=== PATIENT | female | born 1990 | race Caucasian/White ===

== ENCOUNTER 2017-04-11 01:18 | Emergency (ER) | payer OTHER, SELFPAY ==
[2017-04-11] MEDS ORDERED: Ondansetron HCl/PF 4 MG/2 ML Vial ONE (01:42)
[2017-04-11 02:37] LABS: ALT (SGPT) 126 U/L (8-55); AST (SGOT) 140 U/L (5-34); Acetaminophen Less than 6.0 mcg/mL (10.0-30.0); Albumin 3.9 g/dL (3.5-5.0); Alcohol Less than 10 mg/dL (Less than 10); Alkaline Phosphatase 42 U/L (40-150); Anion Gap 18 mmol/L (10-20); BUN (Urea Nitrogen) 18 mg/dL (7.0-18.7); Bilirubin, Total 0.8 mg/dL (0.2-1.2); Calc. Creatinine Clearance 0 mL/min (70-130); Calcium 8.6 mg/dL (7.8-10.44); Carbon Dioxide 22 mmol/L (22-29); Chloride 106 mmol/L (98-107); Estimated GFR-MDRD 71; Globulin 2.8 g/dL (2.4-3.5); Glucose 169 mg/dL (70-105); Potassium 4.5 mmol/L (3.5-5.1); Protein, Total 6.7 g/dL (6.0-8.3); Salicylate Less than 8.0 mg/dL (15.0-30.0); Sodium 141 mmol/L (136-145)
[2017-04-11 02:45] LABS: Band 2 % (5-11); Eosinophils 1 % (0-10); Hemoglobin 12.3 g/dL (12.0-16.0); Lymphocytes 5 % (21-51); MDiff Complete? YES; Mean Corpuscular HGB CONC 34.2 g/dL (32.0-36.0); Mean Corpuscular Hemoglobin 29.6 pg (27.0-31.0); Mean Corpuscular Volume 86.7 fl (81.0-99.0); Mean Platelet Volume 7.4 fL (7.4-10.4); Monocytes 6 % (0-10); Neutrophil 86 % (42-75); PLT Morphology Comment Appears Adequate; Platelet Count 322 thou/uL (130-400); RBC Distribution Width 12.1 % (11.5-14.5); RBC Morphology Normal; Red Blood Cell (RBC) Count 4.15 mill/uL (4.20-5.40); White Blood Cell (WBC) Count 26.1 thou/uL (4.8-10.8)
--- NOTE | 2017-04-11 07:12 | RAD ---
PORTABLE CHEST: Date: 04/11/17 No prior films are available for comparison. FINDINGS: The heart is normal in size. There is a very slight prominence of the vasculature. I cannot exclude v rosa m minor congestion or edema, but there are no focal pulmonary infiltrates. No effusions are seen. T he trachea is midline. IMPRESSION: Slight overall haziness and vascular prominence as noted above. POS: HOME
== END 2017-04-11 02:59 | disposition home or self-care (01) ==
LOC: BURERS 01:18
DX: T40.4X1A Poisoning by other synthetic narcotics, accidental (unintentional), initial encounter (principal); F17.210 Nicotine dependence, cigarettes, uncomplicated
CPT/HCPCS: 36415; 71045; 80053; 80307; 85025; 96361; 96374; J2405

== ENCOUNTER 2018-02-13 12:41 | Emergency (ER) | payer SELFPAY ==
[2018-02-13] MEDS ORDERED: cloNIDine 0.1 MG TAB ONE (13:23)
[2018-02-13] MEDS ORDERED: Ondansetron PF 4 MG/2 ML Vial ONE (13:23)
[2018-02-13 13:29] LABS: #Basophils 0.1 thou/uL (0.0-0.2); #Lymphocytes 1.3 thou/uL (1.20-3.40); #Monocytes 0.5 thou/uL (0.11-0.59); #Neutrophils 9.3 thou/uL (1.40-6.50); %Basophils 0.7 % (0.0-1.0); %Lymphocytes 11.8 % (21.0-51.0); %Monocytes 4.2 % (0.0-10.0); %Neutrophils 83.4 % (42.0-75.0); Hemoglobin 13.4 g/dL (12.0-16.0); Mean Corpuscular HGB CONC 34.6 g/dL (32.0-36.0); Mean Corpuscular Hemoglobin 27.2 pg (27.0-31.0); Mean Corpuscular Volume 78.5 fL (78.0-98.0); Mean Platelet Volume 8.9 fL (7.4-10.4); Platelet Count 405 thou/uL (130-400); RBC Distribution Width 13.8 % (11.5-14.5); Red Blood Cell (RBC) Count 4.93 mill/uL (4.20-5.40); White Blood Cell (WBC) Count 11.1 thou/uL (4.8-10.8)
[2018-02-13 13:39] LABS: ALT (SGPT) 12 U/L (8-55); AST (SGOT) 12 U/L (5-34); Albumin 4.3 g/dL (3.5-5.0); Alkaline Phosphatase 63 U/L (40-150); Anion Gap 15 mmol/L (10-20); BUN (Urea Nitrogen) 12 mg/dL (7.0-18.7); Bilirubin, Total 1.2 mg/dL (0.2-1.2); Calc. Creatinine Clearance 0 mL/min (70-130); Calcium 9.7 mg/dL (7.8-10.44); Carbon Dioxide 23 mmol/L (22-29); Chloride 106 mmol/L (98-107); Estimated GFR-MDRD Greater than 90; Globulin 3.5 g/dL (2.4-3.5); Glucose 126 mg/dL (70-105); Magnesium 2.2 mg/dL (1.6-2.6); Potassium 3.6 mmol/L (3.5-5.1); Protein, Total 7.8 g/dL (6.0-8.3); Sodium 140 mmol/L (136-145)
[2018-02-13] MEDS ORDERED: Potassium Chloride 20 MEQ TAB ONE (14:02)
[2018-02-13] MEDS ORDERED: Ondansetron ODT 4 MG TAB ONE (14:18)
== END 2018-02-13 14:12 | disposition home or self-care (01) ==
LOC: BURERS 12:41
DX: F11.23 Opioid dependence with withdrawal (principal); F17.210 Nicotine dependence, cigarettes, uncomplicated
CPT/HCPCS: 80053; 83605; 83735; 85025; 93005; 96361; 96374; J2405; Q0162